=== PATIENT | female | born 1975 | race American Indian/Alaskan Native ===

== ENCOUNTER 2018-03-07 11:35 | Inpatient (IN) | payer OTHER ==
[2018-03-07] MEDS ORDERED: NACL 0.9% 1000 ML 1,000 ML IV ONE (11:41)
--- NOTE | 2018-03-07 11:47 | Emergency Department Report ---
ED Chest Pain HPI - General Stated Complaint: CHEST PAIN Time Seen by Provider: 03/07/18 11:41 - History of Present Illness Initial Comments: Patient is 42 years old female with history of hypertension and diabetes. Patient presented to the ER complaining of substernal chest pain started yesterday and get worse today. Patient describes her pain as pressure radiating to her back. Patient denied any shortness of breath. EKG showed anterior lateral STEMI. STEMI code called immediately Dr. Mosher In the room examining the patient. Patient transferred to the cardiac cath emergently. MD Complaint: chest pain Pain Location: substernal Pain Radiation: back Quality: pressure - Related Data Home Medications Medication Instructions Recorded Confirmed Last Taken Lisinopril [Zestril] 20 mg PO QDAY 03/07/18 03/07/18 Unknown metFORMIN [Glucophage] 500 mg PO QDAY 03/07/18 03/07/18 Unknown Allergies Allergy/AdvReac Type Severity Reaction Status Date / Time No Known Allergies Allergy Unverified 03/07/18 11:49 Heart Score - HEART Score History: Highly suspicious EKG: Significant ST-depression Age: 45-65 Risk factors: > 3 risk factors or hx of atherosclerotic disease Troponin: > 3x normal limit HEART Score: 9 - Critical Actions Critical Actions: >7 pts:50-65% risk of adverse cardiac event. Early invasive measures ED Review of Systems ROS: Stated complaint: CHEST PAIN Other details as noted in HPI Comment: All other systems reviewed and negative Constitutional: denies: chills, fever Respiratory: denies: cough, orthopnea, shortness of breath, SOB with exertion, SOB at rest, wheezing Cardiovascular: chest pain. denies: palpitations, dyspnea on exertion Gastrointestinal: denies: abdominal pain, nausea, vomiting Neurological: denies: weakness ED Past Medical Hx - Past Medical History Hx Hypertension: Yes Hx Diabetes: Yes - Medications Home Medications: Home Medications Medication Instructions Recorded Confirmed Last Taken Type Lisinopril [Zestril] 20 mg PO QDAY 03/07/18 03/07/18 Unknown History metFORMIN [Glucophage] 500 mg PO QDAY 03/07/18 03/07/18 Unknown History ED Physical Exam - General Limitations: No Limitations General appearance: alert, in no apparent distress, anxious - Head Head exam: Present: atraumatic, normocephalic, normal inspection - Eye Eye exam: Present: normal appearance, PERRL - ENT ENT exam: Present: normal exam, normal orophraynx, mucous membranes moist - Neck Neck exam: Present: normal inspection, full ROM. Absent: tenderness, meningismus, lymphadenopathy, thyromegaly - Respiratory Respiratory exam: Present: normal lung sounds bilaterally - Cardiovascular Cardiovascular Exam: Present: regular rate, normal rhythm, normal heart sounds - GI/Abdominal GI/Abdominal exam: Present: soft, normal bowel sounds. Absent: distended, tenderness, guarding, rebound, rigid, organomegaly, mass, bruit, pulsatile mass , hernia - Extremities Exam Extremities exam: Present: normal inspection, full ROM, normal capillary refill - Back Exam Back exam: Present: normal inspection, full ROM. Absent: CVA tenderness (L) - Neurological Exam Neurological exam: Present: alert, oriented X3, CN II-XII intact, normal gait, reflexes normal - Skin Skin exam: Present: warm, intact, normal color ED Course Vital Signs 03/07/18 03/07/18 11:42 11:45 Temperature 98 F Pulse Rate 74 Respiratory 18 20 Rate Blood Pressure 155/95 O2 Sat by Pulse 99 99 Oximetry ED Medical Decision Making - Lab Data Result diagrams: 03/07/18 Unknown 03/07/18 Unknown Critical Care Time: Yes Critical care time in (mins) excluding proc time.: 30 Critical care attestation.: If time is entered above; I have spent that time in minutes in the direct care of this critically ill patient, excluding procedure time. ED Disposition Clinical Impression: STEMI (ST elevation myocardial infarction) Disposition: OP ADMIT IP TO THIS HOSP Is pt being admited?: Yes Condition: Stable
[2018-03-07] MEDS ORDERED: SUBLIMAZE ONE (11:53)
[2018-03-07] MEDS ORDERED: CALAN ONE (11:53)
[2018-03-07] MEDS ORDERED: HEPARIN/NS 5000 UNIT/500ML(CATH LAB) 1,000 ML IR ONE (11:53)
[2018-03-07] MEDS ORDERED: VERSED ONE (11:53)
[2018-03-07] MEDS ORDERED: XYLOCAINE 2% INFILTRATI ONE (11:53)
[2018-03-07] MEDS ORDERED: NACL 0.9% 500 ML 500 ML ONE (11:54)
[2018-03-07] MEDS ORDERED: NITROGLYCERIN SYRINGE 3 ML ONE (11:54)
[2018-03-07 11:58] LABS: Basophils # (Auto) 0.2 K/mm3 (0.0-0.1); Basophils % (Auto) 1.1 % (0.0-1.8); Hematocrit 43.8 % (30.3-42.9); Hemoglobin 14.5 gm/dl (10.1-14.3); Lymphocytes # (Auto) 1.7 K/mm3 (1.2-5.4); Mean Corpuscular HGB Conc 33 % (30-34); Mean Corpuscular Hemoglobin 29 pg (28-32); Mean Corpuscular Volume 88 fl (79-97); Monocytes # (Auto) 0.8 K/mm3 (0.0-0.8); Monocytes % (Auto) 5.8 % (0.0-7.3); Platelet Count 266 K/mm3 (140-440); Red Cell Distribution Width 14.7 % (13.2-15.2)
--- NOTE | 2018-03-07 12:02 | Consultation ---
History of Present Illness Consult date: 03/07/18 Requesting physician: HAYLEY KHAN Consult reason: other (STEMI) History of present illness: The patient is a 42 year old female with a past medical history significant for hypertension and newly diagnosed diabetes. She presented with complaints of substernal chest pain which awoke her from sleep 5AM this morning. She describes her pain as a nonexertional, constant pressure which radiates into her back. She also had a bout of nausea and vomiting this AM prior to arrival to ED. She denies any SOB, palpitations, diaphoresis, dizziness or syncope. On evaluation, she reports that her chest pain has currently resolved. EKG demonstrated ST elevations in anterior and lateral leads and thus code STEMI was called. Patient taken for emergent LHC. Past History Past Medical History: diabetes, hypertension Social history: denies: smoking, alcohol abuse, prescription drug abuse Medications and Allergies Allergies Allergy/AdvReac Type Severity Reaction Status Date / Time No Known Allergies Allergy Unverified 03/07/18 11:49 Home Medications Medication Instructions Recorded Confirmed Last Taken Type Lisinopril [Zestril] 20 mg PO QDAY 03/07/18 03/07/18 Unknown History metFORMIN [Glucophage] 500 mg PO QDAY 03/07/18 03/07/18 Unknown History Active Meds: Active Medications Sodium Chloride (Nacl 0.9% 1000 Ml) 1,000 mls @ 42 mls/hr IV ONCE ONE Stop: 03/08/18 11:29 Review of Systems Constitutional: no weight loss, no weight gain, no fever, no chills, no sweats Ears, nose, mouth and throat: no ear pain, no nose pain, no sinus pressure, no sinus pain Cardiovascular: chest pain, high blood pressure, no orthopnea, no palpitations, no rapid/irregular heart beat, no edema, no syncope, no lightheadedness, no shortness of breath, no dyspnea on exertion, no decreased exercise tolerance Respiratory: no cough, no shortness of breath, no dyspnea on exertion, no congestion, no wheezing, no pain on inspiration Gastrointestinal: nausea, vomiting, no abdominal pain, no diarrhea, no constipation, no change in bowel habits Genitourinary Female: no pelvic pain, no flank pain Musculoskeletal: no neck stiffness, no neck pain, no shooting arm pain, no arm numbness/tingling, no low back pain, no shooting leg pain, no leg numbness/ tingling, no redness of joints Integumentary: no rash, no pruritis, no redness, no sores, no wounds Neurological: no head injury, no paralysis, no weakness, no parathesias, no numbness, no tingling, no seizures, no syncope Psychiatric: no anxiety Endocrine: no cold intolerance, no heat intolerance Hematologic/Lymphatic: no easy bruising, no easy bleeding Allergic/Immunologic: no urticaria, no wheezing Physical Examination Vital Signs Temp Pulse Resp BP Pulse Ox 98 F 74 20 155/95 99 03/07/18 11:45 03/07/18 11:45 03/07/18 11:45 03/07/18 11:45 03/07/18 11:45 General appearance: no acute distress HEENT: Positive: PERRL, Normocephaly, Mucus Membranes Moist Neck: Positive: neck supple, trachea midline Cardiac: Positive: Reg Rate and Rhythm, S1/S2 Lungs: Positive: clear to auscultation Neuro: Positive: Grossly Intact Abdomen: Positive: Soft. Negative: Tender Skin: Positive: Clear. Negative: Rash, Wound Musculoskeletal: No Fluid Collection, No Pain, Normal Range of Motion Extremities: Absent: edema Results 03/07/18 Unknown 03/07/18 Unknown CBC 03/07/18 Range/Units Unknown WBC 14.2 H (4.5-11.0) K/mm3 RBC 5.00 (3.65-5.03) M/mm3 Hgb 14.5 H (10.1-14.3) gm/dl Hct 43.8 H (30.3-42.9) % Plt Count 266 (140-440) K/mm3 Lymph # 1.7 (1.2-5.4) K/mm3 [place] # 0.8 (0.0-0.8) K/mm3 Eos # 0.0 (0.0-0.4) K/mm3 Baso # 0.2 H (0.0-0.1) K/mm3 - Imaging and Cardiology Echo: pending Cardiac cath: pending EKG: report reviewed, image reviewed EKG interpretations - Telemetry EKG Rhythm: Sinus Rhythm - EKG Sinus rhythms and dysrhythmias: sinus rhythm Myocardial infarction: anterior TN (acute or rec, lateral TN (acute or rece Assessment and Plan S/p LHC with PCI to LAD, EF ~35%. Initiate DAPT with ASA and brilinta. Initiate lopressor and statin. Obtain echo. Tx to CCU. The patient has been seen in conjunction with Dr. Mosher who agrees with the assessment and plan of care. - Patient Problems (1) STEMI (ST elevation myocardial infarction) Current Visit: Yes Status: Acute (2) CAD (coronary artery disease) Current Visit: Yes Status: Chronic (3) Stented coronary artery Current Visit: Yes Status: Chronic (4) HTN (hypertension) Current Visit: Yes Status: Chronic (5) Diabetes Current Visit: Yes Status: Chronic (6) Obesity Current Visit: Yes Status: Chronic
[2018-03-07 12:04] LABS: INR 0.91 (0.87-1.13); Partial Thromboplastin Time 25.2 Sec. (24.2-36.6)
[2018-03-07 12:11] LABS: Creatine Kinase MB 28.2 ng/mL (0.0-4.0)
[2018-03-07 12:12] LABS: BUN/Creatinine Ratio 11; Blood Urea Nitrogen 8 mg/dL (7-17); Calcium 9.6 mg/dL (8.4-10.2); Hemolysis Index 9
[2018-03-07] MEDS: HEPARIN 10,000 UNITS/10 ML ONE ×2 (12:14→12:30)
[2018-03-07] MEDS ORDERED: ALUM-MAG HYDROX-SIMETH 200-200-20MG/5ML ONE (12:49)
[2018-03-07] MEDS ORDERED: BRILINTA ONE (12:49)
--- NOTE | 2018-03-07 14:32 | XRay Report ---
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 IMPRESSION: Unremarkable AP chest.
--- NOTE | 2018-03-07 14:41 | Cardiac Catherization Report ---
CARDIAC CATHETERIZATION AND CORONARY INTERVENTION CLINICAL INFORMATION: This 42-year-old female with history of hypertension and diabetes mellitus diagnosed only in September of this year being followed by Dr. Claudio Fortune with no previous cardiac history woke up this morning with severe anterior and back chest pain associated with nausea and vomiting. She thought she had some stomach issues and took [id number] medication, but the pain is not getting better. Hence, she called the ambulance. By the time she came to the Emergency Room, her pain is markedly improved. However, his EKG showed sinus rhythm at a rate of 67 beats per minute with ST elevation in 1 and aVL up to 2 mm and also a [address] elevations in the leads V4-V6 consistent with acute anterolateral injury. Small Q-waves were noted in the lateral leads. Because of her presentation, she was taken emergently to the catheterization laboratory as a part of the STEMI protocol. The patient was explained of the diagnosis and importance of emergency catheterization. She is willing to proceed with the same. DESCRIPTION OF PROCEDURE: The patient was brought to the catheterization laboratory on an emergency basis. Moderate sedation assessment was made and noted to be appropriate for sedation. She was sedated with IV Versed and fentanyl starting at 12:10 a.m. Subsequently, right radial artery puncture was made using 21-gauge arterial puncture needle. A 5-Australian slender sheath was introduced. Using multipurpose catheter, angiograms of the left coronary artery were obtained. Also, left ventriculogram was performed in IZAGUIRRE and SLOVENIAN projection using hand injection. Subsequently, diagnostic JR4 catheter was used to obtain the angiograms of the right coronary artery. The patient was noted to have occluded mid to distal LAD. Hence, procedure was converted into interventional procedure. Cardiac catheterization findings are as follows: 1. Aortic pressure 177/85, left ventricular pressure 188/24. 2. Left ventriculogram done in IZAGUIRRE projection and the SLOVENIAN projection using hand injection showed akinetic distal one-third of the left ventricle. Ejection fraction was estimated to be 35-40%. 3. Right coronary artery nondominant vessel arises normally from right coronary cusp are angiographically smooth and normal. 4. Left coronary artery arises normally from left coronary cusp. The LAD is in the proximal and in the mid part without any significant disease. Diagonal branch without significant disease; however, it is occluded at the junction of the mid and distal thirds. Distal LAD is not visualized. VAZQUEZ 3 flow was zero in the distal LAD. Large ramus branch and circumflex artery, which is a dominant vessel angiographically smooth and normal. Collaterals none. FINAL IMPRESSION: Akinetic apical area with an ejection fraction of 35-40% with occluded mid left anterior descending with no visualization of the distal left anterior descending. The rest of the vessels being angiographically normal. PLAN: To intervene in the mid LAD, considering her clinical presentation of STEMI. Interventional procedures are namely balloon angioplasty and stent placement of the mid to distal LAD. The patient has indwelling 5-Australian slender sheath in place and the patient received heparin in the Emergency Room and also she received 3000 units of IV heparin during the radial puncture. Her ACT was found to be 240 seconds, hence extra dose of 2000 units of heparin given. Subsequently, 6-Australian EBU 3.5 guiding catheter engaged the left coronary artery. A 0.014-inch Steele XT wire was advanced without difficulty into the distal LAD. Lesion was dilated with 2.5 x 12 mm Euphora balloon followed by placement of a 2.5 x 15 mm Xience stent inflated to 14 atmospheres with very good result. Lesion was reduced from 100% to 0% and VAZQUEZ 0 flow was converted to VAZQUEZ 3 flow. No complications of dissection or perforation were noted. Clinically, the patient is stable without any chest pain or any change in the baseline EKG or hemodynamically. Finally angiogram showed good results and guiding catheter and wire were removed. Radial sheath will be removed once ACT is in the appropriate range. The patient received 180 mg of Brilinta, which was crushed at the request of the patient. The patient is stable. FINAL IMPRESSION: Uncomplicated balloon angioplasty and drug-eluting stent placement of the mid /distal LAD with very good result. Rest of the coronaries without significant disease. The patient will be monitored in CCU. No significant arrhythmia or hemodynamic instability noted during the procedure. The patient does have underlying LV dysfunction. An echocardiogram will be obtained. The patient will be continued on aggressive risk factor modification and medical therapy and will be monitored in CCU for the next 24-48 hours. JOB# [id number] ALAN/BRINA KWAN
[2018-03-07] MEDS ORDERED: ZOFRAN IV PRN (16:04)
[2018-03-07] MEDS ORDERED: TYLENOL PO ONE (16:07)
[2018-03-07] MEDS ORDERED: PERCOCET 5/325 PO PRN (16:27)
[2018-03-07] MEDS ORDERED: MORPHINE IV PRN (16:27)
[2018-03-07] MEDS ORDERED: SODIUM CHLORIDE FLUSH SYRINGE 10 ML IV PRN (16:27)
--- NOTE | 2018-03-07 16:31 | Consultation ---
History of Present Illness - Reason for Consult Consult date: 03/07/18 Requesting physician: SRIDHAR BOYD - History of Present Illness 42 YO Female with HTN, DM, Obesity, Metabolic Syndrome presents to ED for evaluation. Pt states that she has experienced pain in her chest over the past two days, with worsening symptoms over the past 1 day. Pt states that pain in 6/ 10, substernal ,that awoke her from sleep around 0500 hrs, not worsened with exertion, constant, crushing in nature, radiates into her back, associated with nausea, and an episode of vomiting. Pt denies fever, chills, palpitations, diaphoresis, dizziness, hemoptysis, unilateral leg swelling, calf pain, individual/family history of DVT/PE, syncope. PT seen and evaluated in ED and found to have EKG changes consistent with STEMI. Code STEMI called, and cardiology notified. 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 Pt admitted to ICU for further care. Past History Past Medical History: diabetes, hypertension Past Surgical History: No surgical history, Other (reviewed) Social history: single. denies: smoking, alcohol abuse, prescription drug abuse Family history: diabetes, hypertension Medications and Allergies Allergies Allergy/AdvReac Type Severity Reaction Status Date / Time No Known Allergies Allergy Unverified 03/07/18 11:49 Home Medications Medication Instructions Recorded Confirmed Last Taken Type Lisinopril [Zestril] 20 mg PO QDAY 03/07/18 03/07/18 Unknown History metFORMIN [Glucophage] 500 mg PO QDAY 03/07/18 03/07/18 Unknown History Active Meds: Active Medications Aspirin (Baby Aspirin) 81 mg PO QDAY [facility] Atorvastatin Calcium (Lipitor) 80 mg PO QHS [facility] Sodium Chloride (Nacl 0.9% 1000 Ml) 1,000 mls @ 42 mls/hr IV ONCE ONE Stop: 03/08/18 11:29 Lisinopril (Zestril) 20 mg PO DAILY [facility] Metoprolol Tartrate (Lopressor) 25 mg PO BID [facility] Morphine Sulfate (Morphine) 2 mg IV Q4H PRN PRN Reason: Pain, Moderate (4-6) Ondansetron HCl (Zofran) 4 mg IV Q8H PRN PRN Reason: Nausea And Vomiting Oxycodone/Acetaminophen (Percocet 5/325) 1 tab PO Q6H PRN PRN Reason: Pain, Moderate (4-6) Sodium Chloride (Sodium Chloride Flush Syringe 10 Ml) 10 ml IV BID [facility] Sodium Chloride (Sodium Chloride Flush Syringe 10 Ml) 10 ml IV PRN PRN PRN Reason: LINE FLUSH Ticagrelor (Brilinta) 90 mg PO BID [facility] Review of Systems Constitutional: no weight loss, no weight gain, no fever, no chills Ears, nose, mouth and throat: no ear pain, no ear discharge, no tinnitis, no decreased hearing, no nose pain, no nasal congestion, no nasal discharge Cardiovascular: chest pain, no orthopnea, no palpitations, no syncope, no dyspnea on exertion Respiratory: no cough, no cough with sputum, no excessive sputum, no hemoptysis Gastrointestinal: nausea, vomiting, no diarrhea, no constipation, no change in bowel habits, no hematemesis, no coffee ground emesis Genitourinary Female: no dysmenorrhea, no pelvic pain, no flank pain, no menorrhagia, no dysuria, no urinary frequency Rectal: no pain, no incontinence, no bleeding Musculoskeletal: no neck stiffness, no neck pain, no shooting arm pain, no arm numbness/tingling, no low back pain Integumentary: no rash, no pruritis, no redness, no sores, no wounds, no jaundice Neurological: no transient paralysis, no paralysis, no weakness, no parathesias , no numbness, no tingling, no seizures, no syncope Psychiatric: no anxiety, no memory loss, no change in sleep habits, no sleep disturbances, no insomnia, no hypersomnia, no change in appetite Endocrine: no cold intolerance, no heat intolerance, no polyphagia, no excessive thirst, no polydipsia Hematologic/Lymphatic: no easy bruising, no easy bleeding, no lymphadenopathy, no lymphedema Allergic/Immunologic: no urticaria, no allergic rhinitis, no wheezing, no persistent infections, no anaphylaxis Exam - Constitutional Vitals: Temp Pulse Resp BP Pulse Ox 98 F 74 20 155/95 99 03/07/18 11:45 03/07/18 11:45 03/07/18 11:45 03/07/18 11:45 03/07/18 11:45 General appearance: Present: mild distress - EENT Eyes: Present: PERRL ENT: hearing intact, clear oral mucosa - Neck Neck: Present: supple, normal ROM - Respiratory Respiratory effort: normal Respiratory: bilateral: CTA - Cardiovascular Heart Sounds: Present: S1 & S2. Absent: rub, click - Extremities Extremities: pulses symmetrical, No edema Peripheral Pulses: within normal limits - Abdominal General gastrointestinal: Present: soft, non-tender, non-distended, normal bowel sounds Female genitourinary: Present: normal - Integumentary Integumentary: Present: clear, warm, dry - Musculoskeletal Musculoskeletal: gait normal, strength equal bilaterally - Psychiatric Psychiatric: appropriate mood/affect, intact judgment & insight - Neurologic Neurologic: CNII-XII intact, moves all extremities Results - Labs CBC & Chem 7: 03/08/18 04:35 03/08/18 04:35 Labs: Abnormal lab results 03/07/18 03/07/18 03/07/18 Range/Units 12:37 Unknown Unknown WBC 14.2 H (4.5-11.0) K/mm3 Hgb 14.5 H (10.1-14.3) gm/dl Hct 43.8 H (30.3-42.9) % Lymph % (Auto) 12.0 L (13.4-35.0) % Baso # 0.2 H (0.0-0.1) K/mm3 Seg Neutrophils % 81.1 H (40.0-70.0) % Seg Neutrophils # 11.5 H (1.8-7.7) K/mm3 Activated Clotting Time 241 H (74-137) Chloride 96.9 L (98-107) mmol/L Carbon Dioxide 21 L (22-30) mmol/L Glucose 165 H (65-100) mg/dL Total Creatine Kinase 543 H (30-135) units/L CK-MB (CK-2) 28.2 H (0.0-4.0) ng/mL CK-MB (CK-2) Rel Index 5.1 H (0-4) Assessment and Plan - Patient Problems (1) STEMI (ST elevation myocardial infarction) Current Visit: Yes Status: Acute Plan to address problem: Pt taken cugently to 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 The aggregate critical care time was [65] minutes. This time is in addition to time spent performing reported procedures but includes the following: [x] Data Review and interpretation [x] Patient assessment and monitoring of vital signs [x] Documentation [x] Medication orders and management (2) Diabetes Current Visit: Yes Status: Chronic Plan to address problem: AD diet, insulin, accucheck (3) HTN (hypertension) Current Visit: Yes Status: Chronic Qualifiers: Hypertension type: essential hypertension Qualified Code(s): I10 - Essential (primary) hypertension Plan to address problem: monitor bp q shift, continue medical management. (4) DVT prophylaxis Current Visit: Yes Status: Acute Plan to address problem: scd to ble,
[2018-03-07 18:07] LABS: Creatine Kinase MB > 300.0 ng/mL (0.0-4.0)
[2018-03-07 18:19] LABS: Chol/HDL Ratio 4.07 %; HDL Cholesterol 53 mg/dL (40-59); LDL Cholesterol,Direct 158 mg/dL (50-130)
[2018-03-07 18:59] LABS: Amphetamine Screen,Urine PRESUMPTIVE NEGATIVE; Cannabinoid Screen,Urine PRESUMPTIVE NEGATIVE; Cocaine Screen,Urine PRESUMPTIVE NEGATIVE; Methadone Screen,Urine PRESUMPTIVE NEGATIVE
[2018-03-07 19:19] LABS: Benzodiazepines Screen,Urine PRESUMPTIVE POSITIVE; Opiate Screen,Urine PRESUMPTIVE POSITIVE
[2018-03-07] MEDS ORDERED: NITROSTAT SL PRN (20:43)
[2018-03-07] MEDS: BRILINTA PO SCH (22:00)
[2018-03-07] MEDS: LOPRESSOR PO SCH (23:31)
--- NOTE | 2018-03-08 02:49 | XRay Report ---
FINAL REPORT EXAM: XR CHEST 1V AP HISTORY: post pci TECHNIQUE: AP portable view of the chest. PRIORS: None. FINDINGS: The cardiomediastinal silhouette appears normal. The lungs are clear. The bones and soft tissues are unremarkable. IMPRESSION: No evidence of acute cardiopulmonary disease.
[2018-03-08 05:19] LABS: Basophils % (Auto) 0.1 % (0.0-1.8); Eosinophils % (Auto) 0.1 % (0.0-4.3); Hematocrit 38.5 % (30.3-42.9); Hemoglobin 12.8 gm/dl (10.1-14.3); Lymphocytes # (Auto) 2.1 K/mm3 (1.2-5.4); Lymphocytes % (Auto) 14.6 % (13.4-35.0); Mean Corpuscular HGB Conc 33 % (30-34); Mean Corpuscular Hemoglobin 29 pg (28-32); Mean Corpuscular Volume 87 fl (79-97); Monocytes # (Auto) 2.1 K/mm3 (0.0-0.8); Monocytes % (Auto) 14.7 % (0.0-7.3); Platelet Count 239 K/mm3 (140-440); Red Blood Count 4.42 M/mm3 (3.65-5.03); Red Cell Distribution Width 14.7 % (13.2-15.2)
[2018-03-08 05:45] LABS: Creatine Kinase MB 140.4 ng/mL (0.0-4.0)
[2018-03-08 05:47] LABS: BUN/Creatinine Ratio 13; Blood Urea Nitrogen 9 mg/dL (7-17); Calcium 8.6 mg/dL (8.4-10.2); Hemolysis Index 5
[2018-03-08] MEDS: LOPRESSOR PO SCH ×2 (09:49→21:51)
[2018-03-08] MEDS: ZESTRIL PO SCH (09:50)
[2018-03-08] MEDS: BRILINTA PO SCH ×2 (09:50→21:51)
[2018-03-08] MEDS: BABY ASPIRIN PO SCH (09:50)
[2018-03-08] MEDS: SODIUM CHLORIDE FLUSH SYRINGE 10 ML IV SCH ×2 (09:51→22:00)
--- NOTE | 2018-03-08 10:30 | Progress Note ---
<BALJINDER PINEDA - Last Filed: 03/08/18 11:01> Assessment and Plan Echo reviewed - EF 45%, impaired relaxation, mid anteroseptal, apical septal, apical anterior and apical inferior wall segments hypokinetic. Serial EKGs show evolving [place]. Repeat EKG in AM. Replete K+. Currently stable cardiac status. Cont present cardiac regimen, including ASA, brilinta, lisinopril, lopressor and statin. Pt may tx out of CCU to telemetry from cardiology standpoint. Encourage ambulation. Likely d/c home in AM. Assessment and plan reviewed with pt and pt's family member at bedside. The patient has been seen in conjunction with Dr. Mosher who agrees with the assessment and plan of care. - Patient Problems (1) STEMI (ST elevation myocardial infarction) Current Visit: Yes Status: Acute (2) CAD (coronary artery disease) Current Visit: Yes Status: Chronic (3) Stented coronary artery Current Visit: Yes Status: Chronic (4) Cardiomyopathy Current Visit: Yes Status: Chronic (5) HTN (hypertension) Current Visit: Yes Status: Chronic Qualifiers: Hypertension type: essential hypertension Qualified Code(s): I10 - Essential (primary) hypertension (6) Diabetes Current Visit: Yes Status: Chronic (7) Hypokalemia Current Visit: Yes Status: Acute (8) Obesity Current Visit: Yes Status: Chronic Subjective Date of service: 03/08/18 Principal diagnosis: STEMI Interval history: Pt resting comfortably in bed, no current complaints. reports intermittent mild chest pressure overnight. VSS. family at bedside. Objective Last Vital Signs Temp 98.9 F 03/08/18 04:00 Pulse 86 03/08/18 09:50 Resp 14 03/08/18 06:00 BP 110/63 03/08/18 09:50 Pulse Ox 100 03/08/18 06:00 - Physical Examination General: No Apparent Distress HEENT: Positive: PERRL, Normocephaly, Mucus Membranes Moist Neck: Positive: neck supple, trachea midline Cardiac: Positive: Reg Rate and Rhythm, S1/S2 Lungs: Positive: clear to auscultation Neuro: Positive: Grossly Intact Abdomen: Positive: Soft. Negative: Tender Skin: Positive: Clear. Negative: Rash, Wound Musculoskeletal: No Fluid Collection, No Pain, Normal Range of Motion Extremities: Absent: edema - Labs and Meds Cardiac Enzymes 03/07/18 03/07/18 03/08/18 Range/Units 17:06 Unknown 04:35 CK-MB (CK-2) > 300.0 H 28.2 H 140.4 H (0.0-4.0) ng/mL Coagulation 03/07/18 Range/Units Unknown PT 12.8 (12.2-14.9) Sec. INR 0.91 (0.87-1.13) APTT 25.2 (24.2-36.6) Sec. Lipids 03/07/18 Range/Units 17:06 Triglycerides 92 (2-149) mg/dL Cholesterol 216 H (50-199) mg/dL HDL Cholesterol 53 (40-59) mg/dL Cholesterol/HDL Ratio 4.07 % CBC 03/07/18 03/08/18 Range/Units Unknown 04:35 WBC 14.2 H 14.5 H (4.5-11.0) K/mm3 RBC 5.00 4.42 (3.65-5.03) M/mm3 Hgb 14.5 H 12.8 (10.1-14.3) gm/dl Hct 43.8 H 38.5 (30.3-42.9) % Plt Count 266 239 (140-440) K/mm3 Lymph # 1.7 2.1 (1.2-5.4) K/mm3 [place] # 0.8 2.1 H (0.0-0.8) K/mm3 Eos # 0.0 0.0 (0.0-0.4) K/mm3 Baso # 0.2 H 0.0 (0.0-0.1) K/mm3 Comprehensive Metabolic Panel 03/07/18 03/08/18 Range/Units Unknown 04:35 Sodium 137 136 L (137-145) mmol/L Potassium 3.8 3.3 L (3.6-5.0) mmol/L Chloride 96.9 L 99.4 (98-107) mmol/L Carbon Dioxide 21 L 22 (22-30) mmol/L BUN 8 9 (7-17) mg/dL Creatinine 0.7 0.7 (0.7-1.2) mg/dL Glucose 165 H 143 H (65-100) mg/dL Calcium 9.6 8.6 (8.4-10.2) mg/dL - Imaging and Cardiology EKG: report reviewed, image reviewed Echo: report reviewed (EF 45%, impaired relaxation, mid anteroseptal, apical septal, apical anterior and apical inferior wall segments hypokinetic. ) Cardiac cath: report reviewed (PCI of LAD) - Telemetry EKG Rhythm: Sinus Rhythm - EKG Sinus rhythms and dysrhythmias: sinus rhythm Myocardial infarction: anterior [place] (acute or rec, lateral [place] (acute or rece <SRIDHAR MOSHER - Last Filed: 03/08/18 11:28> Assessment and Plan 03/08/2018>patient is stable,discussed with her diagnosis of [place],importance of taking her medications including ASA/brilinta.Patient is willing to consider cardiac rehab. Objective Vital Signs Temp Pulse Resp Resp BP Pulse Ox 03/08/18 10:40 83 28 H 94/55 98 03/08/18 10:30 76 20 94/55 97 03/08/18 10:20 79 21 104/60 98 03/08/18 10:10 75 19 104/60 98 03/08/18 10:00 75 26 H 104/60 97 03/08/18 09:50 75 18 110/63 98 03/08/18 09:49 73 110/63 03/08/18 09:40 75 22 110/63 98 03/08/18 09:30 76 19 110/63 96 03/08/18 09:20 70 23 110/63 96 03/08/18 09:10 80 20 110/63 100 03/08/18 09:00 71 21 110/63 97 03/08/18 08:50 72 17 101/62 98 03/08/18 08:40 72 19 101/62 98 03/08/18 08:30 67 18 101/62 98 03/08/18 08:20 70 23 106/73 98 03/08/18 08:10 67 17 106/73 98 03/08/18 08:00 97.9 F 67 16 106/73 99 03/08/18 07:50 70 20 109/71 100 03/08/18 07:40 67 22 109/71 99 03/08/18 07:30 67 15 109/71 100 03/08/18 07:20 68 14 114/79 100 03/08/18 07:10 64 16 99 08/24/18 07:00 65 16 129/63 100 08/24/18 06:51 73 18 135/88 100 08/24/18 06:41 69 14 135/88 99 /24/18 06:30 71 21 129/63 99 08/24/18 06:21 74 20 135/88 99 /24/18 06:11 65 17 135/88 99 08/24/18 06:00 63 14 135/88 100 /24/18 05:51 63 16 126/84 100 24/18 05:41 64 16 126/84 100 08/24/18 05:30 62 16 126/84 100 /24/18 05:21 64 18 115/72 100 /24/18 05:11 73 17 115/72 100 24/18 05:00 74 18 129/82 100 24/18 04:51 68 21 132/84 99 24/18 04:41 66 18 132/84 100 /24/18 04:30 64 18 129/82 100 24/18 04:21 67 17 127/80 100 24/18 04:11 77 15 127/80 99 24/18 04:00 98.9 F 78 12 124/78 100 /24/18 03:51 64 16 125/81 100 /24/18 03:41 67 18 125/81 100 /24/18 03:30 63 19 132/84 100 24/18 03:21 90 15 128/83 99 /24/18 03:11 64 19 128/83 100 /24/18 03:00 61 18 125/81 100 24/18 02:51 64 19 109/57 100 08/24/18 02:41 63 18 109/57 100 /24/18 02:30 60 16 128/83 100 08/24/18 02:21 63 18 109/57 99 08/24/18 02:11 69 18 109/57 100 /24/18 02:01 70 13 109/57 99 08/24/18 02:00 14 100 /24/18 01:51 83 15 111/70 99 08/24/18 01:41 69 19 111/70 99 /24/18 01:31 83 14 67/22 99 /24/18 01:21 64 16 119/67 100 08/24/18 01:11 65 17 119/67 100 03/08/18 01:00 66 16 111/70 100 03/08/18 00:51 71 17 117/66 100 03/08/18 00:41 65 18 117/66 100 18 00:30 68 17 119/67 100 03/08/18 00:21 66 19 139/85 100 03/08/18 00:11 67 16 139/85 100 03/08/18 00:01 64 13 117/66 100 03/07/18 23:51 67 18 139/85 100 03/07/18 23:42 98.9 F 03/07/18 23:41 65 21 139/85 100 03/07/18 23:31 64 139/85 03/07/18 23:30 60 16 139/85 100 03/07/18 23:21 65 22 151/82 100 03/07/18 23:11 69 14 151/82 100 03/07/18 23:00 71 18 151/82 99 03/07/18 22:51 77 16 140/84 100 03/07/18 22:41 63 17 140/84 100 03/07/18 22:30 66 17 140/84 100 03/07/18 22:21 62 17 129/78 100 03/07/18 22:11 66 18 129/78 100 03/07/18 22:00 98.2 F 64 12 16 129/78 100 03/07/18 21:51 67 13 126/74 100 03/07/18 21:41 68 10 L 126/74 100 03/07/18 21:30 69 12 126/74 100 03/07/18 21:21 73 17 118/73 100 03/07/18 21:11 67 14 118/73 100 03/07/18 21:10 98.2 F 64 14 134/78 100 03/07/18 21:00 70 15 136/79 99 03/07/18 20:51 76 17 136/79 100 03/07/18 20:41 67 11 L 136/79 100 18 20:31 67 15 136/79 100 03/07/18 20:21 69 13 124/82 99 03/07/18 20:11 71 21 124/82 100 03/07/18 20:00 97.8 F 71 20 124/82 100 03/07/18 19:51 75 17 115/76 100 03/07/18 19:42 100 03/07/18 19:41 67 18 115/76 100 03/07/18 19:31 63 11 L 130/82 99 03/07/18 19:30 15 100 03/07/18 19:25 98.9 F 78 12 124/78 100 03/07/18 19:21 66 17 130/82 99 03/07/18 19:11 83 19 130/82 03/07/18 19:01 68 21 130/82 99 03/07/18 18:51 66 16 130/82 99 03/07/18 18:41 74 21 130/82 99 03/07/18 18:31 77 26 H 130/82 99 03/07/18 18:21 68 18 130/82 98 03/07/18 18:11 68 20 130/82 98 03/07/18 17:17 12 03/07/18 15:39 12 03/07/18 13:26 98.9 F 78 12 124/78 100 03/07/18 11:45 98 F 74 20 155/95 99 03/07/18 11:42 18 99 - Labs and Meds Cardiac Enzymes 03/07/18 03/07/18 03/08/18 Range/Units 17:06 Unknown 04:35 CK-MB (CK-2) > 300.0 H 28.2 H 140.4 H (0.0-4.0) ng/mL Coagulation 03/07/18 Range/Units Unknown PT 12.8 (12.2-14.9) Sec. INR 0.91 (0.87-1.13) APTT 25.2 (24.2-36.6) Sec. Lipids 03/07/18 Range/Units 17:06 Triglycerides 92 (2-149) mg/dL Cholesterol 216 H (50-199) mg/dL HDL Cholesterol 53 (40-59) mg/dL Cholesterol/HDL Ratio 4.07 % CBC 03/07/18 03/08/18 Range/Units Unknown 04:35 WBC 14.2 H 14.5 H (4.5-11.0) K/mm3 RBC 5.00 4.42 (3.65-5.03) M/mm3 Hgb 14.5 H 12.8 (10.1-14.3) gm/dl Hct 43.8 H 38.5 (30.3-42.9) % Plt Count 266 239 (140-440) K/mm3 Lymph # 1.7 2.1 (1.2-5.4) K/mm3 [place] # 0.8 2.1 H (0.0-0.8) K/mm3 Eos # 0.0 0.0 (0.0-0.4) K/mm3 Baso # 0.2 H 0.0 (0.0-0.1) K/mm3 Comprehensive Metabolic Panel 03/07/18 03/08/18 Range/Units Unknown 04:35 Sodium 137 136 L (137-145) mmol/L Potassium 3.8 3.3 L (3.6-5.0) mmol/L Chloride 96.9 L 99.4 (98-107) mmol/L Carbon Dioxide 21 L 22 (22-30) mmol/L BUN 8 9 (7-17) mg/dL Creatinine 0.7 0.7 (0.7-1.2) mg/dL Glucose 165 H 143 H (65-100) mg/dL Calcium 9.6 8.6 (8.4-10.2) mg/dL
[2018-03-08] MEDS ORDERED: K-DUR PO ONE (11:02)
[2018-03-08] MEDS ORDERED: HEPARIN 10,000 UNITS/10 ML ONE (11:03)
--- NOTE | 2018-03-08 11:28 | Consultation ---
History of Present Illness Consult date: 03/08/18 Requesting physician: SRIDHAR BOYD Reason for consult: other (STEMI) History of present illness: PULMONARY/CCM CONSULT NOTE (Full dictation # [id number]) Please see dictated notes for full details Past History Past Medical History: diabetes, hypertension Past Surgical History: No surgical history, Other (reviewed) Social history: single. denies: smoking, alcohol abuse, prescription drug abuse Family history: diabetes, hypertension Medications and Allergies Allergies Allergy/AdvReac Type Severity Reaction Status Date / Time No Known Allergies Allergy Unverified 03/07/18 11:49 Home Medications Medication Instructions Recorded Confirmed Last Taken Type Lisinopril [Zestril] 20 mg PO QDAY 03/07/18 03/07/18 Unknown History metFORMIN [Glucophage] 500 mg PO QDAY 03/07/18 03/07/18 Unknown History Active Meds: Active Medications Aspirin (Baby Aspirin) 81 mg PO QDAY [facility] Last Admin: 03/08/18 09:50 Dose: 81 mg Atorvastatin Calcium (Lipitor) 80 mg PO QHS [facility] Last Admin: 03/07/18 22:00 Dose: 80 mg Sodium Chloride (Nacl 0.9% 1000 Ml) 1,000 mls @ 42 mls/hr IV ONCE ONE Stop: 03/08/18 11:29 Lisinopril (Zestril) 20 mg PO DAILY [facility] Last Admin: 03/08/18 09:50 Dose: 20 mg Metoprolol Tartrate (Lopressor) 25 mg PO BID [facility] Last Admin: 03/08/18 09:49 Dose: 25 mg Morphine Sulfate (Morphine) 2 mg IV Q4H PRN PRN Reason: Pain, Moderate (4-6) Last Admin: 03/07/18 17:17 Dose: 2 mg Nitroglycerin (Nitrostat) 0.4 mg SL .Q5MIN PRN PRN Reason: Chest Pain Ondansetron HCl (Zofran) 4 mg IV Q8H PRN PRN Reason: Nausea And Vomiting Oxycodone/Acetaminophen (Percocet 5/325) 1 tab PO Q6H PRN PRN Reason: Pain, Moderate (4-6) Last Admin: 03/08/18 09:49 Dose: 1 tab Sodium Chloride (Sodium Chloride Flush Syringe 10 Ml) 10 ml IV BID [facility] Last Admin: 03/08/18 09:51 Dose: 10 ml Sodium Chloride (Sodium Chloride Flush Syringe 10 Ml) 10 ml IV PRN PRN PRN Reason: LINE FLUSH Ticagrelor (Brilinta) 90 mg PO BID [facility] Last Admin: 03/08/18 09:50 Dose: 90 mg Physical Examination Vital signs: Vital Signs Resp Pulse Ox 18 99 03/07/18 11:42 03/07/18 11:42 Results - Laboratory Findings CBC and BMP: 03/08/18 04:35 03/08/18 04:35 PT/INR, D-dimer PT 12.8 Sec. (12.2-14.9) 03/07/18 Unknown INR 0.91 (0.87-1.13) 03/07/18 Unknown Abnormal lab findings: Abnormal Labs 03/07/18 03/07/18 03/07/18 12:37 17:06 21:32 WBC Hgb Hct Lymph % (Auto) [place] % (Auto) [place] # Baso # Seg Neutrophils % Seg Neutrophils # Activated Clotting Time 241 H Sodium Potassium Chloride Carbon Dioxide Glucose POC Glucose 137 H Total Creatine Kinase 4841 H CK-MB (CK-2) > 300.0 H CK-MB (CK-2) Rel Index 6.1 H Troponin T 9.850 H* D Cholesterol 216 H LDL Cholesterol Direct 158 H 03/07/18 03/07/18 03/08/18 Unknown Unknown 04:35 WBC 14.2 H 14.5 H Hgb 14.5 H Hct 43.8 H Lymph % (Auto) 12.0 L [place] % (Auto) 14.7 H [place] # 2.1 H Baso # 0.2 H Seg Neutrophils % 81.1 H 70.5 H Seg Neutrophils # 11.5 H 10.2 H Activated Clotting Time Sodium Potassium Chloride 96.9 L Carbon Dioxide 21 L Glucose 165 H POC Glucose Total Creatine Kinase 543 H CK-MB (CK-2) 28.2 H CK-MB (CK-2) Rel Index 5.1 H Troponin T Cholesterol LDL Cholesterol Direct 03/08/18 04:35 WBC Hgb Hct Lymph % (Auto) [place] % (Auto) [place] # Baso # Seg Neutrophils % Seg Neutrophils # Activated Clotting Time Sodium 136 L Potassium 3.3 L Chloride Carbon Dioxide Glucose 143 H POC Glucose Total Creatine Kinase 3705 H CK-MB (CK-2) 140.4 H CK-MB (CK-2) Rel Index Troponin T 4.230 H* D Cholesterol LDL Cholesterol Direct
[2018-03-08] MEDS ORDERED: POTASSIUM CHLORIDE FEEDTUBE ONE ×2 (13:00)
--- NOTE | 2018-03-08 14:01 | Progress Note ---
Assessment and Plan Assessment and plan: STEMI Echo revealed - EF 45%, impaired relaxation, mid anteroseptal, apical septal, apical anterior and apical inferior wall segments hypokinetic. Serial EKGs show evolving [place]. Repeat EKG in AM. Cardiology following Currently stable cardiac status. Cont present cardiac regimen, including ASA, brilinta, lisinopril, lopressor and statin. Encourage ambulation. CAD (coronary artery disease) As above Stented coronary artery As above Cardiomyopathy EF 45% HTN (hypertension) Cont antihypertensive meds Diabetes Accuchecks and SSRI Hypokalemia Replete K Obesity Disposition Anticipate d/c in am History Interval history: No new issues Hospitalist Physical - Constitutional Vitals: Temp Pulse Resp BP Pulse Ox 97.9 F 83 28 H 94/55 98 03/08/18 08:00 03/08/18 10:40 03/08/18 10:40 03/08/18 10:40 03/08/18 10:40 General appearance: Present: mild distress - EENT Eyes: Present: PERRL, EOM intact ENT: hearing intact, clear oral mucosa, dentition normal - Neck Neck: Present: supple, normal ROM - Respiratory Respiratory effort: normal Respiratory: bilateral: CTA - Cardiovascular Rhythm: regular Heart Sounds: Present: S1 & S2. Absent: gallop, rub - Extremities Extremities: no ischemia, No edema, Full ROM - Abdominal General gastrointestinal: soft, non-tender, non-distended, normal bowel sounds - Integumentary Integumentary: Present: clear, warm, dry - Neurologic Neurologic: CNII-XII intact, moves all extremities Results - Labs CBC & Chem 7: 03/08/18 04:35 03/08/18 04:35 Labs: Laboratory Last Values WBC 14.5 K/mm3 (4.5-11.0) H 03/08/18 04:35 RBC 4.42 M/mm3 (3.65-5.03) 03/08/18 04:35 Hgb 12.8 gm/dl (10.1-14.3) 03/08/18 04:35 Hct 38.5 % (30.3-42.9) 03/08/18 04:35 MCV 87 fl (79-97) 03/08/18 04:35 MCH 29 pg (28-32) 03/08/18 04:35 MCHC 33 % (30-34) 03/08/18 04:35 RDW 14.7 % (13.2-15.2) 03/08/18 04:35 Plt Count 239 K/mm3 (140-440) 03/08/18 04:35 Lymph % (Auto) 14.6 % (13.4-35.0) 03/08/18 04:35 [place] % (Auto) 14.7 % (0.0-7.3) H 03/08/18 04:35 Eos % (Auto) 0.1 % (0.0-4.3) 03/08/18 04:35 Baso % (Auto) 0.1 % (0.0-1.8) 03/08/18 04:35 Lymph # 2.1 K/mm3 (1.2-5.4) 03/08/18 04:35 [place] # 2.1 K/mm3 (0.0-0.8) H 03/08/18 04:35 Eos # 0.0 K/mm3 (0.0-0.4) 03/08/18 04:35 Baso # 0.0 K/mm3 (0.0-0.1) 03/08/18 04:35 Seg Neutrophils % 70.5 % (40.0-70.0) H 03/08/18 04:35 Seg Neutrophils # 10.2 K/mm3 (1.8-7.7) H 03/08/18 04:35 PT 12.8 Sec. (12.2-14.9) 03/07/18 Unknown INR 0.91 (0.87-1.13) 03/07/18 Unknown APTT 25.2 Sec. (24.2-36.6) 03/07/18 Unknown Activated Clotting Time 241 (74-137) H 03/07/18 12:37 Sodium 136 mmol/L (137-145) L 03/08/18 04:35 Potassium 3.3 mmol/L (3.6-5.0) L 03/08/18 04:35 Chloride 99.4 mmol/L (98-107) 03/08/18 04:35 Carbon Dioxide 22 mmol/L (22-30) 03/08/18 04:35 Anion Gap 18 mmol/L 03/08/18 04:35 BUN 9 mg/dL (7-17) 03/08/18 04:35 Creatinine 0.7 mg/dL (0.7-1.2) 03/08/18 04:35 Estimated GFR > 60 ml/min 03/08/18 04:35 BUN/Creatinine Ratio 13 % 03/08/18 04:35 Glucose 143 mg/dL (65-100) H 03/08/18 04:35 POC Glucose 137 (70-105) H 03/07/18 21:32 Calcium 8.6 mg/dL (8.4-10.2) 03/08/18 04:35 Total Creatine Kinase 3705 units/L (30-135) H 03/08/18 04:35 CK-MB (CK-2) 140.4 ng/mL (0.0-4.0) H 03/08/18 04:35 CK-MB (CK-2) Rel Index 3.7 (0-4) 03/08/18 04:35 Troponin T 4.230 ng/mL (0.00-0.029) H* D 03/08/18 04:35 Triglycerides 92 mg/dL (2-149) 03/07/18 17:06 Cholesterol 216 mg/dL (50-199) H 03/07/18 17:06 LDL Cholesterol Direct 158 mg/dL (50-130) H 03/07/18 17:06 HDL Cholesterol 53 mg/dL (40-59) 03/07/18 17:06 Cholesterol/HDL Ratio 4.07 % 03/07/18 17:06 HCG, Qual Negative (Negative) 03/07/18 Unknown Urine Opiates Screen Presumptive positive 03/07/18 18:30 Urine Methadone Screen Presumptive negative 03/07/18 18:30 Ur Barbiturates Screen Presumptive negative 03/07/18 18:30 Ur Phencyclidine Scrn Presumptive negative 03/07/18 18:30 Ur Amphetamines Screen Presumptive negative 03/07/18 18:30 U Benzodiazepines Scrn Presumptive positive 03/07/18 18:30 Urine Cocaine Screen Presumptive negative 03/07/18 18:30 U Marijuana (THC) Screen Presumptive negative 03/07/18 18:30 Drugs of Abuse Note Disclamer 03/07/18 18:30 Blood Type A POSITIVE 03/07/18 17:03 Antibody Screen Negative 03/07/18 17:03
[2018-03-08] MEDS: PEPCID PO SCH (18:22)
[2018-03-08] MEDS ORDERED: LOVENOX SUB-Q SCH (22:00)
--- NOTE | 2018-03-09 00:13 | Consultation ---
PULMONARY CRITICAL CARE CONSULT CONSULTING PHYSICIAN: Alen Mosher MD REASON FOR CONSULTATION: ST elevation [place]. CHIEF COMPLAINT AND HISTORY OF PRESENT ILLNESS: As follows: The patient is a 42-year-old -[place] female with past medical history significant for a diagnosis of hypertension as well as diabetes, who presented to the Emergency Room after she woke from her sleep with retrosternal chest pain. It was about a 5/10. It was constant and did not radiate initially. She tried to shake it off as gas pains and went back to sleep, but was woken up again shortly with even heavier chest pain 10/10, shortness of breath, radiation to the abdomen and neck. She had episodes of nausea and vomiting. She called 911, brought into the Emergency Room, EKG confirmed an ST elevation [place] and she was emergently taken into the labor relations representative, ST elevations were obvious in the anterolateral leads. In the OR, I believe she had balloon angioplasty and stent placement to the mid to distal LAD. A drug-eluting stent was placed. She was transferred to the Critical Care Unit where I stopped by to see her. When I stopped by to see her, she was pain free at that time. No more nausea, no vomiting. Breathing easy. Denied any pleuritic nature to her earlier symptoms. Now with regards to tobacco use/abuse, she denies any history of tobacco use or abuse whatsoever. This really is as much of the history of presentation as I have. PAST MEDICAL HISTORY: Again significant for diabetes as well as hypertension. PAST SURGICAL HISTORY: Unknown. MEDICATIONS: She was on at the time I stopped by to see her included the following: Aspirin 81 mg p.o. daily, Lipitor 80 mg p.o. at bedtime, lisinopril 20 mg p.o. daily, metoprolol 25 mg p.o. b.i.d., morphine sulfate 2 mg IV q. 4 hours p.r.n. moderate pain, sublingual nitroglycerin p.r.n. chest pain, Zofran 4 mg IV q. 8 hours p.r.n. nausea and vomiting and she was on Brilinta 90 mg p.o. b.i.d. ALLERGIES: No known drug allergies. DIET: Obese, BMI 35.4. Denies significant weight loss or gain in the preceding few weeks to months. FAMILY AND SOCIAL HISTORY: Lives in the community. Denies alcohol, tobacco or illicit drug use or abuse. Family history; otherwise, significant for diabetes and hypertension. REVIEW OF SYSTEMS: No loss of consciousness. No new onset seizures. No new onset focal weakness. No gross hematochezia or melena. No gross hematuria or dysuria. No palpitations. She had the chest pain. No heat or cold intolerance. No polydipsia, polyuria. Complete 13-system review of systems was obtained. Pertinent positives and/or negatives as in the body of history above; otherwise, are noncontributory. PHYSICAL EXAMINATION: VITAL SIGNS: At presentation, she was afebrile, temperature 98.0 degrees Fahrenheit, pulse 74, respiratory rate 18, blood pressure 155/95, oxygen sats were 99%, inspired oxygen concentration at that time was unknown. At the time I saw her, she was 99% on 3 liters nasal cannula. GENERAL: She is a well-built -[place] female, middle-aged looking, looks her stated age, normocephalic, atraumatic, talking to me in full sentences without overt respiratory distress. HEAD, EYES, EARS, NOSE AND THROAT: She is anicteric. No conjunctival erythema. Grossly, no palpable lymph nodes in the supraclavicular or submandibular lymph node chains. No gross jugular venous distention. Oropharynx is a Mallampati #3 oropharynx. Oropharynx is moist. LUNGS: Auscultation of both lung guzman unremarkable. Lungs are clear bilaterally. HEART: Heart sounds 1 and 2 are heard at the time of my evaluation, regular rate and rhythm without rubs or murmurs. ABDOMEN: Soft, full, bowel sounds are positive, nontender. No palpable hepatosplenomegaly. EXTREMITIES: Without overt digital clubbing or cyanosis. No pedal edema. Dorsalis pedis pulses palpable bilaterally. NEUROLOGIC: Pupils are equal, round, about 3 mm, reactive to light. Extraocular muscle movements are intact. She moves all 4 extremities spontaneously. The skin is of normal turgor without cellulitis or rashes. LABORATORY DATA: From my review are as follows: Admission white cell count 14,200, hemoglobin 14.5, hematocrit 43.8, platelet count 266. INR 0.91. Serum sodium 137, potassium 3.8, chloride 97, bicarbonate 21, BUN was 8, creatinine 0.7, glucose was 165. CK at presentation was 4841. Troponin was 9.85. LDL cholesterol elevated at 158. Urine drug screen was presumptive positive for opiates. Her troponin is down to 4.23 today, potassium 3.3. Sodium 136. White count is 14,500. No microbiology studies. Chest x-ray was done. I have reviewed the chest x-ray. I have also reviewed the radiologist's interpretation and essentially an unremarkable chest x-ray. A 2D echocardiogram was done at presentation. It shows an ejection fraction of 45%, which was also confirmed on the catheterization with diastolic dysfunction also. No significant pulmonary hypertension is suggested. Right ventricular systolic pressure calculated at 26 mmHg. ASSESSMENT AND PLAN: 1. ST elevation myocardial infarction, status post balloon angioplasty and stenting with a drug-eluting stent. 2. Obesity. 3. Diabetes. 4. Hypertension. 5. Possible sleep apnea. PLAN: Continue secondary prevention measures per Cardiology. Continue antiplatelet therapy. Continue blood pressure control. Continue Brilinta from the heart failure standpoint. Weight loss has been counseled. Continued tobacco abstinence has been counseled. In the setting of coronary artery disease and acute [place], any untreated obstructive sleep apnea could be disastrous. I will recommend to her she also gets evaluation in the Sleep Clinic. Glycemic control will be further assessed with a hemoglobin A1c order. We will continue sliding scale insulin before meals and at bedtime and cover her blood glucose target 140-180 mg/dL. She will be placed on GI prophylaxis as well as DVT prophylaxis. Potassium is going to be replaced. Flu and pneumonia vaccination will be addressed per protocol if she is okay with Cardiology. The plan will be to transfer to telemetry. Thank you very much for the consult. We will follow along and make further recommendations as picture progresses/becomes clearer. JOB# [id number] TISHA/BRINA KWAN
[2018-03-09] MEDS ORDERED: NACL 0.9% 1000 ML 1,000 ML IV ONE (00:59)
[2018-03-09 05:54] LABS: Creatine Kinase MB 8.7 ng/mL (0.0-4.0)
[2018-03-09 05:58] LABS: BUN/Creatinine Ratio 15; Blood Urea Nitrogen 17 mg/dL (7-17); Calcium 8.2 mg/dL (8.4-10.2); Hemolysis Index 3
[2018-03-09] MEDS: SODIUM CHLORIDE FLUSH SYRINGE 10 ML IV SCH (08:04)
--- NOTE | 2018-03-09 09:47 | Discharge Summary ---
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 She presented with complaints of substernal chest pain which awoke her from sleep 5AM the morning [employer]IST. She described her pain as a nonexertional, constant pressure which radiates into her back. She also had a bout of nausea and vomiting the AM prior to arrival to ED. She denied any SOB, palpitations, diaphoresis, dizziness or syncope. On evaluation, she reported that her chest pain has currently resolved. EKG demonstrated ST elevations in anterior and lateral leads and thus code STEMI was called. Patient taken for emergent LHC. Cath revealed occluded mid LAD with no distal visualization of LAD. Echo cxompleted and revealed - EF 45%, impaired relaxation, mid anteroseptal, apical septal, apical anterior and apical inferior wall segments hypokinetic. Pt was treated w/ ASA, brilinta, lisinopril, lopressor and statin. D/C time 32 min Disposition: DC-01 TO HOME OR SELFCARE Core Measure Documentation - Palliative Care Palliative Care/ Comfort Measures: Not Applicable - Core Measures Any of the following diagnoses?: acute MA - Acute MA Discharge Requirements Aspirin at discharge: Yes ELDER/ARB for LVSD if EF <40%: Yes Beta [place] at discharge: Yes Statin for LDL = or >100 mg/dl on DC: Yes Exam - Constitutional Vitals: Temp Pulse Resp BP Pulse Ox 98.6 F 76 16 96/52 95 03/08/18 19:55 03/08/18 21:51 03/08/18 21:56 03/08/18 22:00 03/09/18 09:18 General appearance: Present: no acute distress, well-nourished - EENT Eyes: Present: PERRL ENT: hearing intact, clear oral mucosa - Neck Neck: Present: supple, normal ROM - Respiratory Respiratory effort: normal Respiratory: bilateral: CTA - Cardiovascular Heart Sounds: Present: S1 & S2. Absent: rub, click - Extremities Extremities: pulses symmetrical, No edema Peripheral Pulses: within normal limits - Abdominal General gastrointestinal: Present: soft, non-tender, non-distended, normal bowel sounds Female genitourinary: Present: normal - Integumentary Integumentary: Present: clear, warm, dry - Musculoskeletal Musculoskeletal: gait normal, strength equal bilaterally - Psychiatric Psychiatric: appropriate mood/affect, intact judgment & insight - Neurologic Neurologic: CNII-XII intact, moves all extremities Plan Activity: no restrictions Weight Bearing Status: Full Weight Bearing Diet: regular Follow up with: SRIDHAR BOYD MD [Staff Physician] - 7 Days (Follow up in our [place] office with Dr. Boyd on 03/20/2018 @ 1:00PM) PRIMARY CARE, [Primary Care Provider] - 3-5 Days Prescriptions: Aspirin [Aspirin BABY CHEW TAB] 81 mg PO QDAY #30 tab.chew AtorvaSTATin [Lipitor] 80 mg PO QHS #30 tablet Lisinopril [Zestril TAB] 20 mg PO DAILY #30 tablet Metoprolol [Lopressor TAB] 25 mg PO BID #60 tablet Nitroglycerin [Nitrostat] 0.4 mg SL .Q5MIN PRN #30 tablet PRN Reason: Chest Pain oxyCODONE /ACETAMINOPHEN [Percocet 5/325 mg] 1 tab PO Q6H PRN #10 tablet PRN Reason: Pain, Moderate (4-6) Ticagrelor [Brilinta] 90 mg PO BID #30 tablet
[2018-03-09 10:18] VITALS: BP 103/57
[2018-03-09] MEDS: ZESTRIL PO SCH (10:37)
[2018-03-09] MEDS: LOPRESSOR PO SCH (11:21)
[2018-03-09] MEDS: BRILINTA PO SCH (11:23)
[2018-03-09] MEDS: BABY ASPIRIN PO SCH (11:23)
[2018-03-09] MEDS: PEPCID PO SCH (11:23)
--- NOTE | 2018-03-09 12:23 | Progress Note ---
Assessment and Plan (1) STEMI (ST elevation myocardial infarction) Current Visit: Yes Status: Acute (2) CAD (coronary artery disease) Current Visit: Yes Status: Chronic (3) Stented coronary artery Current Visit: Yes Status: Chronic (4) Cardiomyopathy Current Visit: Yes Status: Chronic (5) HTN (hypertension) Current Visit: Yes Status: Chronic Qualifiers: Hypertension type: essential hypertension Qualified Code(s): I10 - Essential (primary) hypertension (6) Diabetes Current Visit: Yes Status: Chronic Plan: may go home. Discussed with . To see Dr. Mosher within a week. . Subjective Principal diagnosis: STEMI Interval history: No chest pain or shortness of breath. Made her walk in the [place]. Checked BP 113/78. Objective Vital Signs Temp Pulse Pulse Resp BP Pulse Ox 03/09/18 09:18 95 03/09/18 08:44 97.9 F 79 18 103/57 96 03/09/18 04:20 98.3 F 66 17 88/49 100 03/09/18 00:37 98.1 F 17 73/28 03/08/18 22:00 96/52 03/08/18 21:56 16 03/08/18 21:51 76 96/52 03/08/18 21:40 82 21 96/52 91 03/08/18 21:30 83 22 96/52 03/08/18 21:23 76 03/08/18 21:20 81 23 95/54 93 03/08/18 21:10 86 21 97/61 96 03/08/18 21:05 95 03/08/18 21:00 77 21 87/48 03/08/18 20:50 79 22 101/78 96 03/08/18 20:40 85 22 101/78 98 03/08/18 20:30 82 22 97/61 95 03/08/18 20:20 82 22 95/55 91 03/08/18 20:10 79 21 95/55 95 03/08/18 20:00 101 H 81 31 H 95/55 03/08/18 19:55 98.6 F 03/08/18 19:50 75 23 95/55 95 03/08/18 19:40 78 26 H 95/55 97 03/08/18 19:30 73 20 95/55 93 08/24/18 19:20 75 21 92/59 93 24/18 19:10 74 23 92/59 88 2418 19:00 73 20 92/59 95 03/08/18 18:50 81 23 101/59 93 03/08/18 18:40 77 22 101/59 83 L 18 18:30 74 24 101/59 91 24/18 18:20 73 21 84/58 95 03/08/18 18:10 74 19 84/58 18 18:08 91/53 94 03/08/18 16:40 71 18 91/53 100 18 16:30 68 21 91/53 100 03/08/18 16:20 67 20 90/48 100 03/08/18 16:10 71 18 90/48 99 18 16:00 69 78 16 87/52 99 18 15:50 79 20 90/48 98 03/08/18 15:40 79 15 90/48 99 18 15:30 71 17 88/54 98 18 15:20 69 22 88/54 98 18 15:10 74 14 88/54 97 03/08/18 15:00 68 17 88/54 18 14:50 70 22 85/48 98 03/08/18 14:40 87 27 H 90/44 97 03/08/18 14:30 91 H 22 90/44 92 18 14:20 74 16 90/44 98 18 14:10 75 20 90/44 99 03/08/18 14:00 70 23 98/59 97 18 13:50 72 15 98/59 100 03/08/18 13:40 68 19 98/59 98 03/08/18 13:30 70 21 98/59 98 24/18 13:20 69 17 86/51 99 03/08/18 13:10 71 13 86/51 98 18 13:00 67 18 84/49 98 18 12:50 62 16 84/49 96 03/08/18 12:40 61 18 84/49 96 03/08/18 12:30 61 19 84/49 97 18 12:20 74 16 79/41 99 - Physical Examination General: No Apparent Distress HEENT: Positive: PERRL, Normocephaly, Mucus Membranes Moist Neck: Positive: neck supple, trachea midline. Negative: JVD/HJR Cardiac: Positive: Reg Rate and Rhythm Lungs: Positive: clear to auscultation, Normal Breath Sounds Neuro: Positive: Grossly Intact Abdomen: Positive: Soft. Negative: Tender Skin: Positive: Clear. Negative: Rash, Wound Musculoskeletal: No Fluid Collection, No Pain, Normal Range of Motion Extremities: Absent: edema - Labs and Meds Cardiac Enzymes 03/09/18 Range/Units 04:34 CK-MB (CK-2) 8.7 H (0.0-4.0) ng/mL Comprehensive Metabolic Panel 03/09/18 Range/Units 04:34 Sodium 138 (137-145) mmol/L Potassium 3.7 (3.6-5.0) mmol/L Chloride 102.3 (98-107) mmol/L Carbon Dioxide 22 (22-30) mmol/L BUN 17 (7-17) mg/dL Creatinine 1.1 D (0.7-1.2) mg/dL Glucose 149 H (65-100) mg/dL Calcium 8.2 L (8.4-10.2) mg/dL - Imaging and Cardiology EKG: report reviewed, image reviewed Echo: report reviewed (EF 45%, impaired relaxation, mid anteroseptal, apical septal, apical anterior and apical inferior wall segments hypokinetic. ) Cardiac cath: report reviewed (PCI of LAD) - Telemetry EKG Rhythm: Sinus Rhythm - EKG Sinus rhythms and dysrhythmias: sinus rhythm Myocardial infarction: anterior NE (acute or rec, lateral NE (acute or rece
--- NOTE | 2018-03-09 14:09 | Progress Note ---
Assessment and Plan ST elevation myocardial infarction, status post balloon angioplasty and stenting with a drug-eluting stent. Obesity. Diabetes. Hypertension. Possible sleep apnea. Subjective Date of service: 03/09/18 Principal diagnosis: STEMI Interval history: Patient is seen today for: Seen and examined at bedside; 24hour events reviewed; nursing and respiratory care staff consulted; no adverse overnight events reported to me; Objective Vital Signs - 12hr 03/09/18 03/09/18 03/09/18 04:20 08:44 09:18 Temperature 98.3 F 97.9 F Pulse Rate 66 79 Respiratory 17 18 Rate Blood Pressure 88/49 103/57 O2 Sat by Pulse 100 96 95 Oximetry CBC and BMP: 03/08/18 04:35 03/09/18 04:34 ABG, PT/INR, D-dimer: PT/INR, D-dimer PT 12.8 Sec. (12.2-14.9) 03/07/18 Unknown INR 0.91 (0.87-1.13) 03/07/18 Unknown Abnormal lab findings: Abnormal Labs 03/07/18 03/07/18 03/07/18 12:37 17:06 21:32 WBC Hgb Hct Lymph % (Auto) [place] % (Auto) [place] # Baso # Seg Neutrophils % Seg Neutrophils # Activated Clotting Time 241 H Sodium Potassium Chloride Carbon Dioxide Glucose POC Glucose 137 H Calcium Total Creatine Kinase 4841 H CK-MB (CK-2) > 300.0 H CK-MB (CK-2) Rel Index 6.1 H Troponin T 9.850 H* D Cholesterol 216 H LDL Cholesterol Direct 158 H 03/07/18 03/07/18 03/08/18 Unknown Unknown 04:35 WBC 14.2 H 14.5 H Hgb 14.5 H Hct 43.8 H Lymph % (Auto) 12.0 L [place] % (Auto) 14.7 H [place] # 2.1 H Baso # 0.2 H Seg Neutrophils % 81.1 H 70.5 H Seg Neutrophils # 11.5 H 10.2 H Activated Clotting Time Sodium Potassium Chloride 96.9 L Carbon Dioxide 21 L Glucose 165 H POC Glucose Calcium Total Creatine Kinase 543 H CK-MB (CK-2) 28.2 H CK-MB (CK-2) Rel Index 5.1 H Troponin T Cholesterol LDL Cholesterol Direct 03/08/18 03/09/18 03/09/18 04:35 04:34 12:47 WBC Hgb Hct Lymph % (Auto) [place] % (Auto) [place] # Baso # Seg Neutrophils % Seg Neutrophils # Activated Clotting Time Sodium 136 L Potassium 3.3 L Chloride Carbon Dioxide Glucose 143 H 149 H POC Glucose 115 H Calcium 8.2 L Total Creatine Kinase 3705 H 1275 H CK-MB (CK-2) 140.4 H 8.7 H CK-MB (CK-2) Rel Index Troponin T 4.230 H* D 2.800 H* D Cholesterol LDL Cholesterol Direct
[2018-03-09] MEDS ORDERED: GLUCOPHAGE PO SCH (17:00)
== END 2018-03-09 18:45 | disposition home or self-care (01) | DRG 247 ==
LOC: ED 11:35 → CC1 13:09 → 4A 03-08 23:34
PROVIDERS: ADMIT Internal Medicine; ATTEND Hospitalist
PROC: 027034Z Dilation of Coronary Artery, One Artery with Drug-eluting Intraluminal Device, Percutaneous Approach (ICD-10-PCS; principal; 2018-03-07)
PROC: 4A023N7 Measurement of Cardiac Sampling and Pressure, Left Heart, Percutaneous Approach (ICD-10-PCS; 2018-03-07)
PROC: B211YZZ Fluoroscopy of Multiple Coronary Arteries using Other Contrast (ICD-10-PCS; 2018-03-07)
PROC: B215YZZ Fluoroscopy of Left Heart using Other Contrast (ICD-10-PCS; 2018-03-07)
PROC: 3E033GC Introduction of Other Therapeutic Substance into Peripheral Vein, Percutaneous Approach (ICD-10-PCS; 2018-03-07)
DX: I21.09 ST elevation (STEMI) myocardial infarction involving other coronary artery of anterior wall (principal); I42.9 Cardiomyopathy, unspecified; E66.9 Obesity, unspecified; Z68.35 Body mass index [BMI] 35.0-35.9, adult; E11.9 Type 2 diabetes mellitus without complications; I10 Essential (primary) hypertension; G47.30 Sleep apnea, unspecified; I25.10 Atherosclerotic heart disease of native coronary artery without angina pectoris; E87.6 Hypokalemia; E88.81 Metabolic syndrome and other insulin resistance; Z82.49 Family history of ischemic heart disease and other diseases of the circulatory system; Z83.3 Family history of diabetes mellitus; Z79.899 Other long term (current) drug therapy
CPT/HCPCS: 36415; 71045; 80048; 80061; 80307; 82550; 82553; 82962; 84484; 84703; 85025; 85347; 85610; 85730; 86850; 86900; 86901; 92941; 93005; 93010; 93306; 93458; 94760; 99291; A9270-GY; C1725; C1769; C1874; C1887; C1894; C9606; J1644; J1650; J2250; J2270; J3010; J7030; J7040; Q9967